=== PATIENT | male | born 1965 | race Caucasian/White ===

== ENCOUNTER 2019-02-24 21:04 | Emergency (ER) | payer MEDICAID ==
[~2019-02-24] VITALS: Ht 170.2 cm; Wt 72.6 kg
--- NOTE | 2019-02-24 21:09 | NUR ---
ED Nurse Note: pt came in with [address] c/o of generalized pain. Pt is AO x 3times and confused with conversation. VSS, on room air no distress. KELYD seen Pt at bedside.
[2019-02-24 21:16] VITALS: BP 148/84
--- NOTE | 2019-02-24 21:18 | Emergency Room Report ---
History of Present Illness General Chief Complaint: General Complaint Source: Patient Present Illness HPI Is a 53-year-old male with a history of PTSD. He presents with multiple complaints. He called 911 because he said he may have had a seizure or member. He is out of his Seroquel, Klonopin and Depakote. Denies suicidal thoughts or homicidal thought. He said his pain all over. Denies any fever chills. Denies any nausea vomiting. Denies any hallucination or delusion. Allergies: Coded Allergies: PENICILLINS (Verified Allergy, Unknown, 02/24/19) Patient History Past Medical History: see triage record, old chart reviewed, psych hx Past Surgical History: other Pertinent Family History: none Social History: Reports: smoking Immunizations: other Reviewed Nursing Documentation: PMH: Agreed; PSxH: Agreed Nursing Documentation-PMH Hx Hypertension: Yes History Of Psychiatric Problem: Yes Review of Systems Eye: Denies: eye pain, blurred vision ENT: Denies: ear pain, nose congestion, throat swelling Respiratory: Denies: cough, shortness of breath Cardiovascular: Denies: chest pain, palpitations Gastrointestinal: Denies: abdominal pain, diarrhea, nausea, vomiting Musculoskeletal: Denies: back pain, joint pain Skin: Denies: rash Neurological: Denies: headache, numbness Endocrine: Denies: increased thirst, increased urine Hematologic/Lymphatic: Denies: easy bruising All Other Systems: negative except mentioned in HPI Physical Exam Vital Signs Date Time Temp Pulse Resp B/P (MAP) Pulse Ox O2 Delivery O2 Flow Rate FiO2 02/24/19 21:00 98.1 107 18 172/94 99 Room Air vitals with high blood pressure Sp02 EP Interpretation: reviewed, normal General Appearance: well appearing, no apparent distress, alert Head: normocephalic, atraumatic Eyes: bilateral eye PERRL, bilateral eye EOMI ENT: hearing grossly normal, normal pharynx Neck: full range of motion, supple, no meningismus Respiratory: chest non-tender, lungs clear, normal breath sounds Cardiovascular #1: regular rate, rhythm, no murmur Gastrointestinal: normal bowel sounds, non tender, no mass, no organomegaly, no bruit, non-distended Musculoskeletal: back normal, gait/station normal, normal range of motion Psychiatric: mood/affect normal Skin: warm/dry Medical Decision Making Diagnostic Impression: Primary Impression: Encounter for generalized patient complaints Additional Impression: Chronic pain Qualified Codes: G89.4 - Chronic pain syndrome ER Course She presents with multiple complaints. Most of his complaint is chronic pain in nature. He also wanted me to refill his Klonopin. He said he takes 6 mg a day. Also wanted me to give him Seroquel to the 1600 mg a day. He said SSRIs do not work for him. I am not comfortable prescribing such high doses of these medication. We'll refer him to mental health as outpatient for management of his medication. I see no criteria for 5150. Last Vital Signs Date Time Temp Pulse Resp B/P (MAP) Pulse Ox O2 Delivery O2 Flow Rate FiO2 02/24/19 21:00 98.1 107 18 172/94 99 Room Air Status: unchanged Disposition: HOME, SELF-CARE Condition: Stable Additional Instructions: Follow-up with mental health in a week. Return if symptom worsen. Jude Sandoval MD February 24, 2019 21:18
[2019-02-24 21:32] VITALS: BP 148/84
--- NOTE | 2019-02-24 21:35 | NUR ---
Homeless Discharge: Patient is being discharged from medical care. Awake, alert and oriented x3. After care instructions, including referral to community resources were given. Patient verbalized understanding of After care instructions; at this time patient does not request medications, equipment or placement. Patient signed patient consent in the medical record for patient destination upon discharge. All medical devices such as ID band were removed. Patient ambulated out with all personal belongings with steady gait. Food,drink and cloth offered.
== END 2019-02-24 21:40 | disposition home or self-care (01) ==
LOC: EDBD 21:04 → EMR 21:30
DX: G89.4 Chronic pain syndrome (principal); I10 Essential (primary) hypertension; Z88.0 Allergy status to penicillin; Z79.899 Other long term (current) drug therapy
CPT/HCPCS: 99282

== ENCOUNTER 2020-02-13 16:26 | Emergency (ER) | payer MEDICAID ==
[~2020-02-13] VITALS: Ht 172.7 cm; Wt 72.6 kg
[2020-02-13] MEDS ORDERED: LORazepam Inj 2mg/ml 1ml IV ONE (16:30)
[2020-02-13] MEDS ORDERED: DEPAKOTE250 MG PO (16:34)
[2020-02-13] MEDS ORDERED: QUETIAPINE FUMA25 MG ORAL (16:34)
[2020-02-13 16:35] VITALS: BP 147/94
--- NOTE | 2020-02-13 16:35 | Emergency Room Report ---
History of Present Illness General Chief Complaint: Behavioral Complaint Source: Patient, EMS Present Illness HPI Patient is a 54-year-old male past medical history of anxiety, bipolar disorder and seizure disorder who presents to the ER complaining of panic attack. Patient was standing outside of a [employer] store acting erratically. Security called 911 and EMS arrived when they asked the patient what was going on he told that he was having a panic attack. He complains of palpitations. He denies any drug use. He denies any fever or chills. Patient was brought in by EMS. Patient denies any abdominal pain, nausea or vomiting. He denies any chest pain. Allergies: Coded Allergies: PENICILLINS (Verified Allergy, Unknown, 02/24/19) COVID-19 Screening Contact w/high risk pt: No Recent Travel to affected area: No Experienced COVID-19 symptoms?: No Patient History Reviewed Nursing Documentation: PMH: Agreed; PSxH: Agreed Nursing Documentation-PMH Hx Hypertension: Yes Review of Systems All Other Systems: negative except mentioned in HPI Physical Exam Sp02 EP Interpretation: reviewed, normal General Appearance: alert, GCS 15, non-toxic, other - poorly groomed Head: normocephalic, atraumatic Eyes: bilateral eye normal inspection, bilateral eye PERRL ENT: hearing grossly normal, normal pharynx, no angioedema, normal voice Neck: full range of motion, supple/symm/no masses Respiratory: chest non-tender, lungs clear, normal breath sounds, speaking full sentences Cardiovascular #1: no edema, tachycardia Gastrointestinal: normal bowel sounds, non tender, soft, non-distended, no guarding, no rebound Rectal: deferred Genitourinary: normal inspection, no CVA tenderness Musculoskeletal: back normal, normal range of motion, calf tenderness, gait/ station normal, non-tender Neurologic: alert, motor strength/tone normal, sensory intact, responsive, speech normal Psychiatric: anxious Skin: no rash Lymphatic: no adenopathy Medical Decision Making Diagnostic Impression: Primary Impression: Anxiety Additional Impression: Amphetamine abuse ER Course Patient refusing IV. Patient given 1 mg of intramuscular Ativan. On reevaluation he states that his anxiety has improved. Patient's heart rate is now 110. He states that he does not want to stay for any further treatment or evaluation. Patient's toxicology screen is positive for amphetamines which is also likely contributing to the patient's tachycardia. After discussing risks and benefits of further diagnostics, treatment plans, as well as indications for and risks of admission, the patient is agreeable to being discharged home. I have explained that their evaluation and treatment in the emergency department today is an important step towards them achieving better health but that their evaluation today is not intended to replace further evaluation and treatment by a physician in their local clinic. I have explained that while the current findings suggest no immediate life threatening emergency they will require further evaluation and treatment by a physician of their choice in their area. They understand that it will be necessary for them to review the final reports of their ED visit with their clinic physician. We have reviewed indications for return to the Emergency Department. I have explained that additional time may need to pass and/or additional testing as an outpatient may be necessary before a definitive diagnosis can be made. They tell me they are willing to follow up as instructed within the timeframe I recommend. They appear to understand what we discussed. Additionally they understand that if they are unable to be seen by an outpatient physician they are welcome, and in fact should, return to the Emergency Department for a repeat evaluation. The patient is stable at time of discharge. Disposition: HOME, SELF-CARE Condition: Stable - improved Additional Instructions: The patient was provided with discharge instructions, notified to follow-up with a primary care doctor and or specialist in the next 24-48 hours, and to return to the ED if they have worsening of their symptoms. Please note that this report is being documented using KUB[employer] technology. This can lead to erroneous entry secondary to incorrect interpretation by the dictating instrument. Opal Ramirez M.D. Feb 13, 2020 16:35
[2020-02-13] MEDS ORDERED: LORazepam Inj 2mg/ml 1ml IM ONE (17:00)
[2020-02-13 17:45] VITALS: BP 143/82
[2020-02-13 18:03] VITALS: BP 143/82
== END 2020-02-13 18:03 | disposition home or self-care (01) ==
LOC: EDBD 16:26 → EMR 17:05
DX: F41.9 Anxiety disorder, unspecified (principal); F15.10 Other stimulant abuse, uncomplicated; Z88.0 Allergy status to penicillin; I10 Essential (primary) hypertension; R00.0 Tachycardia, unspecified
CPT/HCPCS: 80307; 96372; Z7502; 99283